=== PATIENT | male | born 1935 | race Caucasian/White ===

== ENCOUNTER 2022-03-03 14:35 | Inpatient (IN) ==
[2022-03-03 15:11] LABS: BORDETELLA PARAPERTUSSIS (PCR) NOT DETECTED (NOT DETECT); BORDETELLA PERTUSSIS (PCR) NOT DETECTED (NOT DETECT); CHLAMYDIA PNEUMONIAE (PCR) NOT DETECTED (NOT DETECT); CORONAVIRUS 229E (PCR) NOT DETECTED (NOT DETECT); CORONAVIRUS HKU1 (PCR) NOT DETECTED (NOT DETECT); CORONAVIRUS NL63 (PCR) NOT DETECTED (NOT DETECT); CORONAVIRUS OC43 (PCR) NOT DETECTED (NOT DETECT); HUMAN METAPNEUMOVIRUS (PCR) NOT DETECTED (NOT DETECT); HUMAN RHINOVIRUS/ENTEROV (PCR) NOT DETECTED (NOT DETECT); INFLUENZA B (PCR) NOT DETECTED (NOT DETECT); MYCOPLASMA PNEUMONIAE (PCR) NOT DETECTED (NOT DETECT); PARAINFLUENZA VIRUS 1 (PCR) NOT DETECTED (NOT DETECT); PARAINFLUENZA VIRUS 2 (PCR) NOT DETECTED (NOT DETECT); PARAINFLUENZA VIRUS 3 (PCR) NOT DETECTED (NOT DETECT); PARAINFLUENZA VIRUS 4 (PCR) NOT DETECTED (NOT DETECT); RESPIRATORY SYNCYTIAL V (PCR) NOT DETECTED (NOT DETECT); SARS_COV_2 (PCR) NOT DETECTED (NOT DETECT)
[2022-03-03 16:04] LABS: ADENOVIRUS (PCR) NOT DETECTED (NOT DETECT)
[2022-03-03] MEDS ORDERED: NITROSTAT SL PRN (16:36)
[2022-03-03] MEDS ORDERED: ATROPINE SULFATE PFS IVP PRN (16:36)
[2022-03-03] MEDS ORDERED: MOTRIN PO PRN (16:43)
[2022-03-03] MEDS ORDERED: TYLENOL PO PRN ×2 (16:48→17:00)
[2022-03-03] MEDS ORDERED: LIBRIUM PO PRN (16:58)
[2022-03-03] MEDS: SODIUM CHLORIDE 1,000 ML IV SCH (17:10)
[2022-03-03 17:20] LABS: ALANINE AMINOTRANSFERASE 30.6 U/L (0-50); ALBUMIN 4.51 g/dL (3.5-5.0); ALKALINE PHOSPHATASE 91.2 U/L (56-119); ASPARTATE AMINO TRANSFERASE 47.5 U/L (17-59); BILIRUBIN,TOTAL 0.36 mg/dL (0.2-1.3); BLOOD UREA NITROGEN 12.4 mg/dL (9-20); CALCIUM 9.26 mg/dL (8.4-10.2); CARBON DIOXIDE 24.4 mmol/L (22-30.0); CHLORIDE 103.2 mmol/L (98-107); CREATINE KINASE 28.1 U/L (55-170); CREATININE 0.79 mg/dL (0.60-1.10); GLUCOSE 121.4 mg/dL (74-106); POTASSIUM 3.82 mmol/L (3.5-5.1); SODIUM 139.6 mmol/L (134.5-145); TOTAL PROTEIN 8.09 g/dL (6.3-8.2)
[2022-03-03 17:21] LABS: BASOPHILS % (AUTO) 0.5 % (0.0-3.0); HEMATOCRIT 38.4 % (42.0-52.0); HEMOGLOBIN 12.9 g/dl (14.0-18.0); LYMPHOCYTES # (AUTO) 0.6 K/uL (0.60-3.4); LYMPHOCYTES % (AUTO) 28.9 (10.0-50.0); MEAN CORPUSCULAR HEMOGLOBIN 31.3 pg (27.0-31.0); MEAN CORPUSCULAR HGB CONC 33.6 (31.8-35.4); MEAN CORPUSCULAR VOLUME 93.2 fl (80.0-94.0); MONOCYTES # (AUTO) 0.4 K/uL (0.4-2.0); MONOCYTES % (AUTO) 20.4 (0-10); NEUTROPHILS % (AUTO) 49.2 % (42.2-75.2); PLATELET COUNT 97 10^3/uL (140-440); RDW COEFFICIENT OF VARIATION 13.3 % (11.6-14.8); RED BLOOD COUNT 4.12 10^6/ul (4.70-6.10); WHITE BLOOD COUNT 2.01 K/ul (4.2-10.2)
[2022-03-03 17:32] LABS: TROPONIN I < 0.012 ng/ml (0.0000-0.120)
[2022-03-03 17:45] VITALS: BMI 26.6
[2022-03-03 17:47] LABS: ABG O2 HGB 92.9 % (95-100); ABG PH 7.45 (7.35-7.45); BEecf 3.1 (-2.0-3.0); COHb 1.9 (0.5-1.5); HCO3 27.1 (21-28); MetHb 0.7 (0-1.5); TCO2 28.3 (19-24); sO2 93.4 % (94-98); tHb 12.2 g/dl (11.7-17.4)
[2022-03-03 18:35] LABS: BILIRUBIN,URINE 1+ (NEGATIVE); CLARITY,URINE Slightly (CLEAR); COLOR,URINE Amber (YELLOW); GLUCOSE, URINE (UA) Negative (NEGATIVE); KETONES,URINE 1+ (NEGATIVE); LEUKOCYTE ESTERASE ,URINE Negative (NEGATIVE); NITRITE,URINE Negative (NEGATIVE); PH,URINE 5.5 (5-9); PROTEIN,URINE 1+ (NEGATIVE); URINE, BLOOD 3+ (NEGATIVE); UROBILINOGEN,URINE 0.2 (0.2)
[2022-03-03 18:37] LABS: SQUAMOUS EPITHELIAL CELL,UR NOT PRESENT (0-5)
[2022-03-03 18:38] LABS: BACTERIA,URINE 3+ (NOT PRESENT)
[2022-03-03] MEDS: ROCEPHIN 1 GM/50 ML D5W 1 GM/50 ML BAG IV SCH (18:44)
[2022-03-03] MEDS: ZITHROMAX PO SCH (18:44)
[2022-03-03] MEDS: TYLENOL PO PRN (21:56)
[2022-03-04 00:39] LABS: HEMATOCRIT 34.5 % (42.0-52.0); HEMOGLOBIN 11.4 g/dl (14.0-18.0); MEAN CORPUSCULAR HEMOGLOBIN 31.4 pg (27.0-31.0); PLATELET COUNT 93 10^3/uL (140-440); RDW COEFFICIENT OF VARIATION 13.3 % (11.6-14.8); RED BLOOD COUNT 3.63 10^6/ul (4.70-6.10); WHITE BLOOD COUNT 2.39 K/ul (4.2-10.2)
[2022-03-04 00:52] LABS: CREATINE KINASE 23.8 U/L (55-170)
[2022-03-04 00:53] LABS: ALANINE AMINOTRANSFERASE 27.9 U/L (0-50); ALBUMIN 3.78 g/dL (3.5-5.0); ALKALINE PHOSPHATASE 78.1 U/L (56-119); ASPARTATE AMINO TRANSFERASE 45.7 U/L (17-59); BILIRUBIN,TOTAL 0.23 mg/dL (0.2-1.3); BLOOD UREA NITROGEN 13.6 mg/dL (9-20); CALCIUM 8.41 mg/dL (8.4-10.2); CARBON DIOXIDE 24.5 mmol/L (22-30.0); CHLORIDE 103.2 mmol/L (98-107); CREATININE 0.74 mg/dL (0.60-1.10); GLUCOSE 103.4 mg/dL (74-106); POTASSIUM 3.67 mmol/L (3.5-5.1); SODIUM 136.7 mmol/L (134.5-145); TOTAL PROTEIN 7.06 g/dL (6.3-8.2)
[2022-03-04 01:04] LABS: TROPONIN I < 0.012 ng/ml (0.0000-0.120)
[2022-03-04 01:28] LABS: ANISOCYTOSIS NOT PRESENT (NOT PRESENT)
[2022-03-04] MEDS: TYLENOL PO PRN (06:40)
[2022-03-04] MEDS: SODIUM CHLORIDE 1,000 ML IV SCH ×2 (06:40→21:15)
[2022-03-04] MEDS: ROCEPHIN 1 GM/50 ML D5W 1 GM/50 ML BAG IV SCH (09:56)
[2022-03-04] MEDS: ZITHROMAX PO SCH (11:05)
[2022-03-04] MEDS: ASPIRIN EC PO SCH (11:05)
[2022-03-04] MEDS: PROTONIX PO SCH (11:05)
[2022-03-04] MEDS: COLACE PO SCH (11:05)
[2022-03-04] MEDS: OMEGA-3 FISH OIL PO SCH (11:05)
[2022-03-04] MEDS: FLOMAX PO SCH (11:05)
[2022-03-04] MEDS: ZOCOR PO SCH (11:06)
[2022-03-04] MEDS: MULTIVITAMIN TABLET PO SCH (11:06)
--- NOTE | 2022-03-04 11:38 | CT ---
Exam: Chest CT without and with IV contrast. Technique: Chest CT was performed before and after intravenous contrast administration. Multiplanar reformats were made. History: Shortness of breath. Comparison: CT chest 11/06/2021. FINDINGS: Lungs/Pleura: Stable postoperative changes in both lungs. Small amount of aerated secretions in the distal trachea. No acute consolidation. No suspicious nodule or mass. Mild emphysema. Mild scatte red linear scarring. No pleural effusion. Mediastinum: No adenopathy. Cardiovascular: No pericardial effusion. Extensive atherosclerosis of the aorta with coronary calcifi cations. Chest wall, thoracic inlet, and axillae: No mass or adenopathy. Upper abdomen and GE junction: Hypodensity of the liver parenchyma suggesting fatty infiltration. Bones: Advanced multilevel spondylosis. IMPRESSION: 1. No acute abnormality. 2. Stable postoperative changes in the lungs with mild scattered scarring. emphysema. 3. Extensive atherosclerosis with coronary calcifications. All CT scans are performed using dose optimization techniques as appropriate to the performed exam an d include at least one of the following: Automated exposure control, adjustment of the mA and/or kV according t o size, and the use of iterative reconstruction technique.
[2022-03-04 13:33] LABS: ERYTHROCYTE SEDIMENTATION RATE 11 mm/hr (0-15)
[2022-03-04] MEDS: TORADOL IVP PRN ×2 (14:18→23:23)
[2022-03-04] MEDS: COZAAR PO SCH (14:18)
[2022-03-05 05:40] LABS: BASOPHILS % (AUTO) 0.7 % (0.0-3.0); EOSINOPHILS % (AUTO) 1.1 % (0.0-7.0); HEMATOCRIT 31.4 % (42.0-52.0); HEMOGLOBIN 10.8 g/dl (14.0-18.0); IMMATURE GRANULOCYTE % (AUTO) 0.7 % (0.0-5.0); LYMPHOCYTES # (AUTO) 1.3 K/uL (0.60-3.4); LYMPHOCYTES % (AUTO) 46.7 (10.0-50.0); MEAN CORPUSCULAR HGB CONC 34.4 (31.8-35.4); MEAN CORPUSCULAR VOLUME 92.9 fl (80.0-94.0); MONOCYTES # (AUTO) 0.7 K/uL (0.4-2.0); MONOCYTES % (AUTO) 26.1 (0-10); NEUTROPHILS # (AUTO) 0.7 K/ul (2.0-6.9); NEUTROPHILS % (AUTO) 24.7 % (42.2-75.2); PLATELET COUNT 84 10^3/uL (140-440); RDW COEFFICIENT OF VARIATION 13.1 % (11.6-14.8); RED BLOOD COUNT 3.38 10^6/ul (4.70-6.10); WHITE BLOOD COUNT 2.76 K/ul (4.2-10.2)
[2022-03-05] MEDS: PROTONIX PO SCH (05:41)
[2022-03-05 06:03] LABS: ALANINE AMINOTRANSFERASE 28.2 U/L (0-50); ALBUMIN 3.59 g/dL (3.5-5.0); ALKALINE PHOSPHATASE 81.5 U/L (56-119); ASPARTATE AMINO TRANSFERASE 44.6 U/L (17-59); BILIRUBIN,TOTAL 0.2 mg/dL (0.2-1.3); BLOOD UREA NITROGEN 11.9 mg/dL (9-20); CALCIUM 8.17 mg/dL (8.4-10.2); CARBON DIOXIDE 26.6 mmol/L (22-30.0); CHLORIDE 104.7 mmol/L (98-107); CREATININE 0.63 mg/dL (0.60-1.10); GLUCOSE 100.2 mg/dL (74-106); POTASSIUM 3.86 mmol/L (3.5-5.1); SODIUM 137.1 mmol/L (134.5-145); TOTAL PROTEIN 6.74 g/dL (6.3-8.2)
[2022-03-05 06:10] LABS: ANISOCYTOSIS 2+ (NOT PRESENT); HYPOCHROMASIA 1+ (NOT PRESENT); POIKILOCYTOSIS 1+ (NOT PRESENT)
[2022-03-05] MEDS ORDERED: DECADRON IM ONE (08:33)
--- NOTE | 2022-03-05 09:42 | PCM.PROG ---
Attending Provider: ATTENDING PROVIDER: Dr. SHANNON DIALLO This patient is seen with Nori Gonzalez, Nurse Practitioner. DATE OF SERVICE: 03/05/22 SUBJECTIVE: This 86 year old /WHITE M was hospitalized 03/03/22. Resting comfortably. Appetite improved. Still short of breath with exertion. She is [place] ving one-sided headache with visual disturbances. UTI with culture pending. Will stop IV fluids today. Blood pressure has improved with addition of Cozaar. The patient still reports extreme weakness and fatigue. He needs assistance with ADLs. He had been previously living at home independently. Both procalcitonin and C-reactive protein were elevated on admission. Prior to admission, the patient had had fever 101 to 102 for four days. REVIEW OF SYSTEMS: CONSTITUTIONAL: Weakness, fatigue. No night sweats. No malaise, lethargy. No fever or chills. HEENT: Eyes: No visual changes. No eye pain. No eye discharge. ENT: No runny nose. No epistaxis. No sinus pain. No odynophagia. No congestion. RESPIRATORY: Cough, no congestion. No hemoptysis. Shortness of breath. CARDIOVASCULAR: No angina symptoms. No CHF symptoms. No atypical chest pain for CAD. No palpitations. No orthopnea.. GASTROINTESTINAL: No abdominal pain. No nausea or vomiting. No diarrhea or constipation. No hematemesis. No hematochezia. GENITOURINARY: No urgency. No frequency. No dysuria. No hematuria. No obstructive symptoms. No discharge. No pain. No significant abnormal bleeding. MUSCULOSKELETAL: No musculoskeletal pain; no joint swelling. NEUROLOGICAL: Awake, alert, oriented to time, place and person. No headache. No neck pain. No syncope. No seizures. No dizziness. PSYCHIATRIC: Not anxious. No depression. No suicidal thoughts. No homicidal thoughts. SKIN: No rash. No lesions. No wounds. ENDOCRINE: No unexplained weight loss. No weight gain. HEMATOLOGIC/LYMPHATIC: No anemia. No purpura. No petechiae. No prolonged or excessive bleeding. No palpable lymph nodes. PHYSICAL EXAMINATION: GENERAL: The patient is awake, alert and oriented, lying/sitting in bed in no distress. VITAL SIGNS: Temperature 97.9 F, Pulse 68, Respiratory Rate 16, BP 131/73, Pulse Ox 95% HEENT: Head normocephalic, atraumatic. Eyes: Extraocular muscles are intact. Pupils are equal, round and reactive to light and accommodation. Ears: No lesions. Nose appeared normal. Throat: No exudate or erythema. NECK: Supple. No JVD, no carotid bruit. No lymphadenopathy or thyromegaly. LUNGS: Severely diminished breath sounds. Clear to auscultation. Percussion note normal. Chest symmetrical. HEART: S1, S2, no S3. No murmurs. No cyanosis or clubbing. No ascites. Pulses: Dorsalis pedis and posterior tibial pulses +1 to +2 both sides. ABDOMEN: Soft. Non-tender. Bowel sounds active. No CVA tenderness. No mass felt. EXTREMITIES: No edema. Full range of motion of all extremities, equal. NEUROLOGIC: No focal deficit. Cranial nerves II through XII are grossly intact. No headache. No double vision. SKIN: Not dry. Intact. Turgor-normal. LYMPHATIC: No palpable lymph nodes/no lymphedema. MUSCULOSKELETAL: Normal joints with no swelling. Muscle tone is normal. LAB REVIEW: 03/05/22 05:15 03/05/22 05:15 03/05/22 05:15: Sodium 137.1, Potassium 3.86, Chloride 104.7, Carbon Dioxide 26.6, Anion Gap 9.66, BUN 11.9, Creatinine 0.63, Estimated GFR (MDRD) 120.00, BUN/Creatinine Ratio 18.88, Glucose 100.2, Calcium 8.17 L, Total Bilirubin 0.20, AST 44.6, ALT 28.2, Alkaline Phosphatase 81.5, Total Protein 6.74, Albumin 3.59, Globulin 3.15, Albumin/Globulin Ratio 1.13 03/05/22 05:15: WBC 2.76 L, RBC 3.38 L, Hgb 10.8 L, Hct 31.4 L, MCV 92.9, MCH 32.0 H, MCHC 34.4, RDW Coeff of Terrance 13.1, Plt Count 84 L, Immature Gran % (Auto) 0.7, Neut % (Auto) 24.7 L, Lymph % (Auto) 46.7, [place] % (Auto) 26.1 H, Eos % (Auto) 1.1, Baso % (Auto) 0.7, Neut # (Auto) 0.7 L, Lymph # (Auto) 1.3, [place] # (Auto) 0.7, Eos # (Auto) 0.0, Baso # (Auto) 0.0, Immature Gran # (Auto) 0.0, Hypochromasia 1+, Poikilocytosis 1+, Anisocytosis 2+ 03/04/22 12:51: C-Reactive Prot, Quant 36 H 03/04/22 12:51: ESR 11 ASSESSMENT: Please see below. 1. Acute pneumonitis. 2. Dehydration - improved. 3. Shortness of breath. 4. COPD. 5. Hypertension. 6. UTI, culture pending. 7. Thrombocytopenia. PLAN: 1. Repeat procalcitonin due to elevation. 2. D/C fluids. 3. Decadron 4 mg IM today. 4. Repeat C-reactive protein. 5. Anticipate discharge tomorrow. 6. At discharge tomorrow - Omnicef 300 mg b.i.d. for 7 days. 7. At discharge tomorrow - Prednisone 10 mg daily for five days. Plan and coordination of the patient's care discussed in the presence of Client Resolution Specialist and nurse. CONDITION: Stable SCRIBED BY: [email or web address] MORROW Inserting Machine Operator scribed while in presence of service performed by Dr. Diallo/Nori Gonzalez APRN on 03/05/22 ([id number])
[2022-03-05] MEDS: ASPIRIN EC PO SCH (09:43)
[2022-03-05] MEDS: COLACE PO SCH (09:43)
[2022-03-05] MEDS: ZOCOR PO SCH (09:43)
[2022-03-05] MEDS: MULTIVITAMIN TABLET PO SCH (09:44)
[2022-03-05] MEDS: FLOMAX PO SCH (09:44)
[2022-03-05] MEDS: OMEGA-3 FISH OIL PO SCH (09:45)
[2022-03-05] MEDS: COZAAR PO SCH (09:45)
[2022-03-05] MEDS: ZITHROMAX PO SCH (09:46)
[2022-03-05] MEDS: ROCEPHIN 1 GM/50 ML D5W 1 GM/50 ML BAG IV SCH (09:48)
--- NOTE | 2022-03-05 10:34 | HP ---
DATE OF SERVICE: 03/03/22 REASON FOR HOSPITALIZATION/HISTORY OF PRESENT ILLNESS: Lost 4 pounds. Started with fever on Wednesday, went to ER Wednesday. Did not given any medications. Still with fever today, 101 today. Take two Tylenol ES Q 6 hours. No appetite. No nausea, vomiting or diarrhea. Small cough. PAST MEDICAL HISTORY: Lung cancer twice PAST SURGICAL HISTORY: Lower back surgery Surgery on lungs twice ([place]) Cyst on tailbone REVIEW OF SYSTEMS: CONSTITUTIONAL: Fever, Fatigue. HEENT: Sinus drainage, no sore throat. RESPIRATORY: Cough, no congestion. CARDIOVASCULAR: No atypical chest pain for coronary artery disease. No angina, CHF symptoms, palpitations or shortness of breath. GASTROINTESTINAL: No melena or abdominal pain. No GERD. No appetite. GENITOURINARY: No hematuria, no prostatism, no polyuria. Decreased urine output. RETAIL STOCKER: No blackout, no dizziness, no headache, no double vision. MUSCULOSKELETAL: Osteoarthritis pain, no joint swelling. ENDOCRINE: No weight loss, no weight gain. SKIN: Not dry, no rash. PSYCHIATRIC: Not anxious, no depression, no suicidal thoughts, no homicidal thoughts. SOCIAL HISTORY: Marital Status: . Alcohol Usage: No. Tobacco Usage: No. FAMILY HISTORY: Father Mother possible atherosclerosis, angina MEDICATIONS: Librium 10mg HS PRN Protonix 40mg PO daily Simvastatin 40mg daily Flomax 0.4mg Aspirin 81mg daily Centrum Silver daily Colace daily Fish oil daily ALLERGIES: No known allergies. PHYSICAL EXAMINATION: V/S: Pulse 103, blood pressure 110/66, temperature 97.5, oxygen saturation 93%. GENERAL APPEARANCE: Oriented times three. Pale. Dry mucus membranes. HEENT: Normal. NECK: No JVP, no bruits. RESPIRATORY: Decreased breath sounds. CARDIOVASCULAR: S1, S2, no S3, no murmur. No cyanosis, clubbing. No ascites. GI/ABDOMEN: No tenderness. Bowel sounds are active. EXTREMITIES: edema, pulses +1, equal. RETAIL STOCKER: Deep tendon reflexes, sensory, motor and gait all normal. RECTAL: Dr. Vazquez 2018. ASSESSMENT: 1. Fever 2. Dehydration 3. Shortness of breath 4. Carotid stenosis right 50-69% 5. Persistent chest opacities 11/14 Dr. Nelson 6. History of bilateral pneumonia 7. Lung tumor resection, Von [place] 8. Right lower lobe pneumonectomy-Dr. King 1989 9. Quit smoking 35 years ago 10.Chronic anemia 11.Fatigue 12.Palpitations-Zaina 2019 13. Left shoulder pain 14. History lumber spine surgery 15. 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 Dyslipidemia 18. BPH 19. Insomnia PLAN: 1. The patient to be tested in drive thru 2. Routine telemetry orders 3. CBC and CMP now and daily 4. Normal saline IV at 75cc an hour 5. CT chest with and without 6. Rocephin 1 gram IV daily 7. Zithromax 500mg PO daily times three days 8. U/A 9. Regular diet 10.Blood cultures times two 11.ABG on room air 12.Tylenol 500mg PO Q 6 hour for fever>100 13.Continue Home medications 14.Ibuprofen 400mg PO Q 6 hours PRN fever 15.Procalcitonin 16. Lactic acid TIME SPENT: More than 70 minutes. MTDD
[2022-03-05] MEDS ORDERED: VASOTEC IV IVP PRN (15:17)
[2022-03-05] MEDS ORDERED: NORVASC PO ONE (15:17)
[2022-03-05] MEDS ORDERED: XANAX PO PRN (15:20)
[2022-03-05] MEDS: XANAX PO SCH (20:36)
[2022-03-05] MEDS: NORVASC PO SCH (20:36)
[2022-03-06 05:09] LABS: BASOPHILS % (AUTO) 0.3 % (0.0-3.0); EOSINOPHILS % (AUTO) 0.3 % (0.0-7.0); HEMATOCRIT 32.3 % (42.0-52.0); HEMOGLOBIN 10.8 g/dl (14.0-18.0); IMMATURE GRANULOCYTE % (AUTO) 0.3 % (0.0-5.0); LYMPHOCYTES # (AUTO) 1.4 K/uL (0.60-3.4); LYMPHOCYTES % (AUTO) 47.2 (10.0-50.0); MEAN CORPUSCULAR HEMOGLOBIN 30.9 pg (27.0-31.0); MEAN CORPUSCULAR HGB CONC 33.4 (31.8-35.4); MEAN CORPUSCULAR VOLUME 92.6 fl (80.0-94.0); MONOCYTES # (AUTO) 0.7 K/uL (0.4-2.0); MONOCYTES % (AUTO) 24.5 (0-10); NEUTROPHILS # (AUTO) 0.8 K/ul (2.0-6.9); NEUTROPHILS % (AUTO) 27.4 % (42.2-75.2); RDW COEFFICIENT OF VARIATION 13.1 % (11.6-14.8); RED BLOOD COUNT 3.49 10^6/ul (4.70-6.10)
[2022-03-06 05:24] LABS: ALANINE AMINOTRANSFERASE 28.5 U/L (0-50); ALBUMIN 3.97 g/dL (3.5-5.0); ALKALINE PHOSPHATASE 95.6 U/L (56-119); ASPARTATE AMINO TRANSFERASE 43.6 U/L (17-59); BILIRUBIN,TOTAL 0.28 mg/dL (0.2-1.3); BLOOD UREA NITROGEN 7.2 mg/dL (9-20); CALCIUM 8.62 mg/dL (8.4-10.2); CARBON DIOXIDE 27.9 mmol/L (22-30.0); CHLORIDE 104.6 mmol/L (98-107); CREATININE 0.56 mg/dL (0.60-1.10); GLUCOSE 105.7 mg/dL (74-106); POTASSIUM 3.54 mmol/L (3.5-5.1); TOTAL PROTEIN 7.25 g/dL (6.3-8.2)
[2022-03-06 05:45] LABS: PLATELET COUNT 91 10^3/uL (140-440)
[2022-03-06] MEDS: PROTONIX PO SCH (05:45)
[2022-03-06] MEDS ORDERED: DECADRON IM ONE (09:23)
--- NOTE | 2022-03-06 09:36 | PCM.PROG ---
Attending Provider: ATTENDING PROVIDER: Dr. SHANNON HAN DATE OF SERVICE: 03/06/22 SUBJECTIVE: This 86 year old /WHITE M was hospitalized 03/03/22 with fever, shortness of breath and dehydration. The patient is feeling a lot better. Yesterday the patient's blood pressure went up and medication was added. Blood press is on the low side today. Headache and neck pain are more positional. No difficulty with vision. REVIEW OF SYSTEMS: CONSTITUTIONAL: No night sweats. No fatigue, malaise, lethargy. No fever or chills. HEENT: Eyes: No visual changes. No eye pain. No eye discharge. ENT: No runny nose. No epistaxis. No sinus pain. No odynophagia. No congestion. RESPIRATORY: No cough, no congestion. No hemoptysis. No shortness of breath. CARDIOVASCULAR: No angina symptoms. No CHF symptoms. No atypical chest pain for CAD. No palpitations. No orthopnea.. GASTROINTESTINAL: No abdominal pain. No nausea or vomiting. No diarrhea or constipation. No hematemesis. No hematochezia. GENITOURINARY: No urgency. No frequency. No dysuria. No hematuria. No obstructive symptoms. No discharge. No pain. No significant abnormal bleeding. MUSCULOSKELETAL: No musculoskeletal pain; no joint swelling. NEUROLOGICAL: Awake, alert, oriented to time, place and person. No headache. No neck pain. No syncope. No seizures. No dizziness. PSYCHIATRIC: Not anxious. No depression. No suicidal thoughts. No homicidal thoughts. SKIN: No rash. No lesions. No wounds. ENDOCRINE: No unexplained weight loss. No weight gain. HEMATOLOGIC/LYMPHATIC: No anemia. No purpura. No petechiae. No prolonged or excessive bleeding. No palpable lymph nodes. PHYSICAL EXAMINATION: GENERAL: The patient is awake, alert and oriented, sitting in bed in no distress. VITAL SIGNS: Temperature 97.5 F, Pulse 61, Respiratory Rate 18, BP 106/63, Pulse Ox 95% HEENT: Head normocephalic, atraumatic. Eyes: Extraocular muscles are intact. Pupils are equal, round and reactive to light and accommodation. Ears: No lesions. Nose appeared normal. Throat: No exudate or erythema. NECK: Supple. No JVD, Bilateral carotid bruit. No lymphadenopathy or thyromegaly. LUNGS: Clear to auscultation. Percussion note normal. Chest symmetrical. HEART: S1, S2, no S3. No murmurs. No cyanosis or clubbing. No ascites. Pulses: Dorsalis pedis and posterior tibial pulses +1 to +2 both sides. ABDOMEN: Soft. Non-tender. Bowel sounds active. No CVA tenderness. No mass felt. EXTREMITIES: No edema. Full range of motion of all extremities, equal. NEUROLOGIC: No focal deficit. Cranial nerves II through XII are grossly intact. No headache, no double vision or headache. SKIN: Warm and dry. Intact. Turgor-normal. LYMPHATIC: No palpable lymph nodes/no lymphedema. MUSCULOSKELETAL: Normal joints with no swelling. Muscle tone is normal. LAB REVIEW: 03/06/22 04:00 03/06/22 04:00 03/06/22 04:00: Sodium 140.0, Potassium 3.54, Chloride 104.6, Carbon Dioxide 27.9, Anion Gap 11.04, BUN 7.2 L, Creatinine 0.56 L, Estimated GFR (MDRD) 138.00, BUN/Creatinine Ratio 12.85, Glucose 105.7, Calcium 8.62, Total Bilirubin 0.28, AST 43.6, ALT 28.5, Alkaline Phosphatase 95.6, Total Protein 7.25, Albumin 3.97, Globulin 3.28, Albumin/Globulin Ratio 1.21 03/06/22 04:00: WBC 2.90 L, RBC 3.49 L, Hgb 10.8 L, Hct 32.3 L, MCV 92.6, MCH 30.9, MCHC 33.4, RDW Coeff of Terrance 13.1, Plt Count 91 L, Immature Gran % (Auto) 0.3, Neut % (Auto) 27.4 L, Lymph % (Auto) 47.2, [place] % (Auto) 24.5 H, Eos % (Auto) 0.3, Baso % (Auto) 0.3, Neut # (Auto) 0.8 L, Lymph # (Auto) 1.4, [place] # (Auto) 0.7, Eos # (Auto) 0.0, Baso # (Auto) 0.0, Immature Gran # (Auto) 0.0 03/05/22 05:15: C-React Prot High Sens 29.94 H 03/05/22 05:15: Procalcitonin 0.29 H ASSESSMENT: Please see below. 1. Fever/Shortness of breath and dehydration, resolved 2. Headache does seem more positional more related to cervical osteoarthritis 3. Hypertension, controlled 4. Other lung problems seen by pulmonary physician PLAN: 1. Discontinued evening dose of Amlodipine 2. Monitor blood pressure 3. The patient should be up and about 4. 1cc Decadron today 5. X-ray C spine if not done Plan and coordination of the patient's care discussed in the presence of Surgical Instrument Technician and nurse. CONDITION: Stable SCRIBED BY: Armando RUDOLPH scribed while in presence of service performed by Dr. SHANNON HAN on 03/06/22 ([id number])
[2022-03-06] MEDS: ASPIRIN EC PO SCH (10:37)
[2022-03-06] MEDS: MULTIVITAMIN TABLET PO SCH (10:38)
[2022-03-06] MEDS: COLACE PO SCH (10:38)
[2022-03-06] MEDS: LIPITOR PO SCH (10:39)
[2022-03-06] MEDS: NORVASC PO SCH (10:40)
[2022-03-06] MEDS: OMEGA-3 FISH OIL PO SCH (10:40)
[2022-03-06] MEDS: COZAAR PO SCH (10:41)
[2022-03-06] MEDS: FLOMAX PO SCH (10:42)
[2022-03-06] MEDS: ROCEPHIN 1 GM/50 ML D5W 1 GM/50 ML BAG IV SCH (10:44)
--- NOTE | 2022-03-06 12:14 | DI ---
EXAM: Three views cervical spine HISTORY: Neck pain radiating up the right side of the head. COMPARISON: None. FINDINGS/IMPRESSION: Severe multilevel spondylosis with complete disc height loss at C3-C7, large multilevel endplate oste ophytes, endplate degenerative changes, and degenerative facet arthrosis. Reversal of the cervical l ordosis. No significant vertebral body height loss or spondylolisthesis. Scattered calcified atheromatous plaques.
--- NOTE | 2022-03-06 14:41 | PN ---
DATE OF SERVICE: 03/05/22 SUBJECTIVE: The patient was seen and examined with the Nurse Practitioner. The patient's condition seems to be improving. His blood pressure has been running high, will add Norvasc 5mg twice a day. He was already on Cozaar 50mg BID. Vasotec is going to be given 1.25mg IV for blood pressure over 150 Q 6 hours. The patient was seen and examined with the Nurse Practitioner. Other conditions are stable. The patient's headache is much better. The patient has been started on steroids. SED RATE was practically normal with mild elevated CRP, no visual problems. I don't think that the patient has temporal arthritis. Previous CT scan of the head done which was negative. Carotid scan 50-70% with no other findings because he has been having some dizziness at times. CONDITION: Stable. TIME SPENT: More than 30 minutes. Plan and coordination of the patient's care discussed in the presence of nurse. DANICA
[2022-03-06] MEDS: XANAX PO SCH (20:37)
[2022-03-07 05:03] LABS: BASOPHILS % (AUTO) 0.6 % (0.0-3.0); EOSINOPHILS % (AUTO) 0.6 % (0.0-7.0); HEMATOCRIT 30.7 % (42.0-52.0); HEMOGLOBIN 10.5 g/dl (14.0-18.0); IMMATURE GRANULOCYTE % (AUTO) 0.3 % (0.0-5.0); LYMPHOCYTES # (AUTO) 1.4 K/uL (0.60-3.4); LYMPHOCYTES % (AUTO) 42.8 (10.0-50.0); MEAN CORPUSCULAR HEMOGLOBIN 31.4 pg (27.0-31.0); MEAN CORPUSCULAR HGB CONC 34.2 (31.8-35.4); MEAN CORPUSCULAR VOLUME 91.9 fl (80.0-94.0); MONOCYTES # (AUTO) 0.5 K/uL (0.4-2.0); NEUTROPHILS # (AUTO) 1.3 K/ul (2.0-6.9); NEUTROPHILS % (AUTO) 40.7 % (42.2-75.2); PLATELET COUNT 115 10^3/uL (140-440); RDW COEFFICIENT OF VARIATION 13.1 % (11.6-14.8); RED BLOOD COUNT 3.34 10^6/ul (4.70-6.10)
[2022-03-07 05:05] VITALS: BP 127/65; TEMP 97.6
[2022-03-07 05:19] LABS: ALANINE AMINOTRANSFERASE 39.2 U/L (0-50); ALBUMIN 3.91 g/dL (3.5-5.0); ALKALINE PHOSPHATASE 84.2 U/L (56-119); ASPARTATE AMINO TRANSFERASE 57.6 U/L (17-59); BILIRUBIN,TOTAL 0.36 mg/dL (0.2-1.3); BLOOD UREA NITROGEN 7.9 mg/dL (9-20); CALCIUM 8.7 mg/dL (8.4-10.2); CARBON DIOXIDE 26.9 mmol/L (22-30.0); CHLORIDE 105.3 mmol/L (98-107); CREATININE 0.5 mg/dL (0.60-1.10); GLUCOSE 108.8 mg/dL (74-106); POTASSIUM 3.66 mmol/L (3.5-5.1); SODIUM 138.9 mmol/L (134.5-145); TOTAL PROTEIN 7.3 g/dL (6.3-8.2)
[2022-03-07] MEDS: PROTONIX PO SCH (05:47)
[2022-03-07] MEDS ORDERED: PREDNISONE PO SCH (08:30)
[2022-03-07] MEDS: COLACE PO SCH (08:39)
[2022-03-07] MEDS: LIPITOR PO SCH (08:39)
[2022-03-07] MEDS: MULTIVITAMIN TABLET PO SCH (08:40)
[2022-03-07] MEDS: OMEGA-3 FISH OIL PO SCH (08:40)
[2022-03-07] MEDS: FLOMAX PO SCH (08:40)
[2022-03-07] MEDS: ASPIRIN EC PO SCH (08:40)
[2022-03-07] MEDS: COZAAR PO SCH (08:40)
[2022-03-07] MEDS ORDERED: NORVASC PO SCH (09:00)
[2022-03-07] MEDS ORDERED: OMNICEF PO SCH (09:00)
--- NOTE | 2022-03-17 12:56 | PN ---
DATE OF SERVICE: 03/03/22 SUBJECTIVE: 86 year old white male was admitted with history of fever, shortness of breath and dehydration. The patient was seen in the emergency room before time he came in with complaint of having fever, all the workup was negative so he was discharged home. The patient called back to the office and reported fever of 101 to 102 so he was asked to come to the office and then hospitalized for further treatment investigation. His urine is abnormal likely the patient has urosepsis. The patient also complains of having a headache for last 4-5 days with fever so we will rule out temporal arteritis. We will SED RATE and CRP. The patient was seen and examined with the Nurse Practitioner and the plan was carried out. The patient's previous history in the old chart reviewed. Prognosis is guarded. CONDITION: Stable. TIME SPENT: More than 30 minutes. Plan and coordination of the patient's care discussed in the presence of nurse. DANICA
--- NOTE | 2022-03-17 13:02 | PN ---
DATE OF SERVICE: 03/04/22 SUBJECTIVE: 86 year old white male hospitalized with short of breath, fever, dehydration. The patient's condition seems to have improved. He says that he is feeling better, not coughing much. Appetite seems to have improved. Headache is still present. REVIEW OF SYSTEMS: CONSTITUTIONAL: No night sweats. No fatigue, malaise, lethargy. No fever or chills. HEENT: Eyes: No visual changes. No eye pain. No eye discharge. ENT: No runny nose. No epistaxis. No sinus pain. No sore throat. No odynophagia. No congestion. RESPIRATORY: No cough, no congestion. No hemoptysis. Shortness of breath little less than yesterday. CARDIOVASCULAR: No angina symptoms. No CHF symptoms. No atypical chest pain for CAD. No palpitations. No PND. No orthopnea. GASTROINTESTINAL: No abdominal pain. No nausea or vomiting. No diarrhea or constipation. No hematemesis. No hematochezia. GENITOURINARY: No urgency. No frequency. No dysuria. No hematuria. No obstructive symptoms. No discharge. No pain. No significant abnormal bleeding. MUSCULOSKELETAL: No musculoskeletal pain; no joint swelling. NEUROLOGICAL: Headache. No neck pain. No syncope. No seizures. No dizziness. PSYCHIATRIC: Not anxious. No depression. No suicidal thoughts. No homicidal thoughts. SKIN: No rash. No lesions. No wounds. ENDOCRINE: No unexplained weight loss. No weight gain. HEMATOLOGIC/LYMPHATIC: No anemia. No purpura. No petechiae. No prolonged or excessive bleeding. No palpable lymph nodes. PHYSICAL EXAMINATION: VITAL SIGNS: Temperature 98.8, pulse 74, respiratory rate 16, blood pressure 162/79 and pulse ox 93%. HEENT: Head normocephalic, atraumatic. Eyes: Extraocular muscles are intact. Pupils are equal, round and reactive to light and accommodation. Ears: No lesions. Nose appeared normal. Throat: No exudate or erythema. NECK: Supple. No JVD, no carotid bruit. No lymphadenopathy or thyromegaly. LUNGS:Decreased breath sounds but clear to auscultation. Percussion note normal. Chest symmetrical. HEART: S1, S2, no S3. No murmurs. No cyanosis or clubbing. No ascites. Pulses: Dorsalis pedis and posterior tibial pulses +1 to +2 bilaterally. ABDOMEN: Soft. Nontender. Bowel sounds active. No CVA tenderness. No mass felt. EXTREMITIES: No edema. Full range of motion of all extremities, equal. NEUROLOGIC: No focal deficit. Cranial nerves II through XII are grossly intact. No headache. No double vision. SKIN: Not dry. Intact. Turgor - normal. LYMPHATIC: No palpable lymph nodes/no lymphedema. MUSCULOSKELETAL: Normal joints with no swelling. Muscle tone is normal. LABS: Hgb 11.4, hct 34, WBC 2,300 normal differential, creatinine 0.7, BUN 13, potassium 3.6 ASSESSMENT: 1. Fever of unknown etiology likely UTI. Rule out temporal arteritis 2. Headache, etiology is unknown could be from fever. 3. Hypertension PLAN: 1. SED RATE 2. CRP 3. CT scan of the chest is pending 4. The patient doesn't have any localized tenderness of any temporal area. There are no signs of other temporal arteritis. The patient's vision is just as before, no change. The patient has no fever today. 5. Losartan 50mg twice a day for blood pressure 6. Toradol 50mg IV Q 6 hours for his headache. CONDITION: Stable. TIME SPENT: More than 30 minutes. Plan and coordination of the patient's care discussed in the presence of nurse. DANICA
--- NOTE | 2022-03-17 14:05 | DS ---
DATE OF SERVICE: 03/07/22 FINAL DIAGNOSIS: 1. Fever/ Mild bronchitis with shortness of breath etiology viral. COVID 19 negative. 2. Dehydration 3. Cervical osteoarthritis with cervical muscle spasm and mild headache 4. Pancytopenia with hgb 10.5, WBC 3,200 with plt count of 115,000. 5. Hypertension 6. Chronic lung disease 7. Abnormal CT scan of the chest followed by Dr. Leni Nelson 8. Benign prostatic hypertrophy 9. Dyslipidemia 10.Reflux disease DISCHARGE INSTRUCTIONS: Discharge home. Advised to come back in 5-7 days. Echocardiogram 2DM mode to be done on Wednesday at 11am. MEDICATIONS AT DISCHARGE: Aspirin Chlordiazepoxide as before Pantoprazole as before Simvastatin Tamsulosin NEW PRESCRIPTIONS: Amlodipine 5mg PO at HS Cozaar 50mg PO QAM Prednisone 10mg daily for 5 days Omnicef 300mg PO twice a day for 5 days HOSPITAL COURSE: 86 year old white male hospitalized with history of having fever 101 to 102 with shortness of breath, dehydration. The patient has been seen in the emergency room and was sent home. All tests were negative. Reported back to the office with complaints after 2-3 days. The patient was directed hospitalized through the office. After being seen in the office. The patient was given IV fluids and started on Rocephin. The patient had mild headache coming from his cervical osteoarthritis. X-ray revealed osteoarthritis. The patient was ruled out to have temporal arteritis. SED rate was normal. CRP was mild elevated to 236. The patient was given a couple of shots of Decadron along with Rocephin and Azithromycin. The patient's condition improved remarkably. At the time of discharge he was feeling a lot better. There was no fever and no chills, no headache. No shortness of breath. His dehydrated had resolved. His appetite was practically back to normal. He felt a lot better. His blood pressure was somewhat out of control initially during the stay in the hospital which was brought under control with Amlodipine and Cozaar. At discharge the patient's blood pressure was acceptable. He was discharged home in stable condition to be followed as an outpatient. He was advised to continue followup with other consultants that he sees. Instructed to come back in 5-7 days. Discharged medications were the same as before. The new medications were Amlodipine and Cozaar along with Prednisone and Omnicef. The patient is to have 2DM mode echo in coming Wednesday, 4 days from now to evaluate his function because of shortness of breath the patient had prior to hospitalization. TIME SPENT: More than 60 minutes. DANICA
--- NOTE | 2022-03-17 14:05 | PN ---
ADMISSION DAY: LEVEL 5 REST OF THEM: INTERMEDIATE FINAL DAY: D as in discharge MTDD
== END 2022-03-07 13:45 | disposition home or self-care (01) | DRG 202 ==
LOC: LAB 14:35 → MEDSURG A 16:22
PROVIDERS: ADMIT Internal Medicine; ATTEND Internal Medicine
DX: M19.90 Unspecified osteoarthritis, unspecified site; R63.4 Abnormal weight loss; Z20.822 Contact with and (suspected) exposure to COVID-19; D63.8 Anemia in other chronic diseases classified elsewhere; Z85.118 Personal history of other malignant neoplasm of bronchus and lung; E86.0 Dehydration; K22.70 Barrett's esophagus without dysplasia; E78.5 Hyperlipidemia, unspecified; Z79.899 Other long term (current) drug therapy; N40.1 Benign prostatic hyperplasia with lower urinary tract symptoms; Z90.2 Acquired absence of lung [part of]; R06.02 Shortness of breath; R05.9 Cough, unspecified; D61.818 Other pancytopenia; I65.21 Occlusion and stenosis of right carotid artery; R50.9 Fever, unspecified; J20.9 Acute bronchitis, unspecified; J44.9 Chronic obstructive pulmonary disease, unspecified